=== PATIENT | male | born 1950 | race Caucasian/White ===

== ENCOUNTER 2017-07-03 21:53 | Inpatient (IN) | payer MEDICARE ==
[~2017-07-03] VITALS: Ht 160 cm; Wt 64.9 kg
--- NOTE | 2017-07-03 22:18 | ED.ADGEN ---
Past History Past Medical History: Anxiety, Arthritis, Bronchitis, CAD, CHF, COPD, Depression, Schizophrenia Past Surgical History: Gastric Bypass Adult General Chief Complaint Chief Complaint "Ah...Ah....Ah....Ah...." HPI HPI Patient is a 18 year old male who presents with hx of schizophrenia and mental status change. Pt. well know to PD [place] for hx. Schizophrenia and occasional exacerbations. Pt. normally follows at [facility]. Pt reported very agitated, destroying property tonight , hallucinating and confused. Pt. appears to have been non-compliant with intake of Citalopram 30 and Quetiapine 400 daily. Pt. PD referral for his behavior and mental status change. Pt. behavior is most agitated that the police have ever seen with him. Police dept. is very familiar with this patient and his psychotic schizophrenic exacerbations. Patient has a long history of noncompliance, polysubstance abuse, Bipolar, CARDz s/p CABG , HTN, COPD, Chronic Pain, DJD, Erectile Dysfunction, Hyperlipidemia, Hepatitis, and PTSD. Pt. usually drug of choice is Cocaine and ETOH. Pt. has hx. of multiple psychiatric admits. Pt. hx. college degree. Previously followed with Dr. Love. Pt. could not be reasoned with by Police or Paramedics. Pt. reportedly very agitated, violent and confused. Patient would not follow any request by the Police Department or paramedics. Pt. fighting with paramedics and police. Pt. eventually required Versed 5 mg nasal and 5 mg IV. Minimal effect on his severe agitation and required restraints. Patient on arrival very agitated and confused. Was moving all extremities. Attempts to bite staff and pull out IV 's and tariq. Review of Systems Review of Systems Unable to obtain because of patient's confusion/ mental status Family History Family History Not currently available Current Medications Current Medications Current Medications Medications (Trade) Dose Ordered Sig/Javi Start Time Stop Time Status Last Admin Dose Admin Ceftriaxone Sodium 2 gm/ Sodium Chloride 100 ml @ 200 mls/hr 1X ONCE 07/03/17 23:45 07/04/17 00:14 UNV Ceftriaxone Sodium (Rocephin) 2 gm 1X ONCE 07/03/17 23:59 07/04/17 00:00 DC 07/04/17 00:36 2 GM Diphenhydramine HCl (Benadryl) 50 mg 1X ONCE 07/03/17 22:30 07/03/17 22:31 DC 07/03/17 22:39 50 MG Midazolam HCl (Versed) 5 mg 1X ONCE 07/03/17 23:45 07/03/17 23:46 DC 07/04/17 00:07 5 MG Olanzapine (ZyPREXA IM) 10 mg 1X ONCE 07/03/17 23:45 07/03/17 23:46 DC 07/04/17 00:05 10 MG Ondansetron HCl (Zofran) 4 mg PRN Q4HRS PRN 07/04/17 02:00 07/05/17 01:59 Sodium Bicarbonate 50 meq 1X ONCE 07/03/17 23:00 07/03/17 23:43 DC 07/03/17 23:49 50 MEQ Sodium Chloride 1,000 ml @ 1,000 mls/hr 1X ONCE 07/03/17 23:45 07/04/17 00:44 DC 07/03/17 23:45 1,000 MLS/HR See Nursing for home meds Allergies Allergies Allergies Coded Allergies Type Severity Reaction Last Updated Verified No Known Drug Allergies 07/03/17 No Physical Exam Physical Exam Constitutional: in acute distress, appearance of someone under influence of drugs [] HENT: Normocephalic, atraumatic, bilateral external ears normal, oropharynx dry , no oral exudates, nose normal. Edentulous Eyes: PERRLA, EOMI, conjunctiva normal, no discharge. [] Neck: Normal range of motion, no tenderness, supple, no stridor. [] Cardiovascular: Tachycardia Heart rate regular rhythm, no murmur, PMI to the left Lungs & Thorax: Bilateral breath sounds equal apex with scattered wheezes throughout on auscultation []Midline scar Abdomen: Bowel sounds normal, soft, no tenderness, no masses, no pulsatile masses. [] Skin: Warm, dry, no erythema, no rash. Poor turgor Back: No tenderness, no CVA tenderness. [] Extremities: No tenderness, no cyanosis, no clubbing, ROM intact, no edema. Arthritic changes Neurologic: , moving all extremities, volitional response to noxious stimuli, no gross focal deficits noted. [] Psychologic: Affect very agitated. Current Patient Data Lab Results Laboratory Tests Test 07/03/17 22:00 07/03/17 22:10 07/03/17 22:36 07/04/17 01:11 White Blood Count 12.7 x10^3/uL (4.0-11.0) H Red Blood Count 4.39 x10^6/uL (4.30-5.70) Hemoglobin 13.7 g/dL (13.0-17.5) Hematocrit 40.1 % (39.0-53.0) Mean Corpuscular Volume 91 fL (79-100) Mean Corpuscular Hemoglobin 31 pg (25-35) Mean Corpuscular Hemoglobin Concent 34 g/dL (31-37) Red Cell Distribution Width 13.4 % (11.5-14.5) Platelet Count 266 x10^3/uL (140-400) Neutrophils (%) (Auto) 74 % (31-73) H Lymphocytes (%) (Auto) 15 % (24-48) L Monocytes (%) (Auto) 10 % (0-9) H Eosinophils (%) (Auto) 0 % (0-3) Basophils (%) (Auto) 1 % (0-3) Neutrophils # (Auto) 9.3 x10^3uL (1.8-7.7) H Lymphocytes # (Auto) 1.9 x10^3/uL (1.0-4.8) Monocytes # (Auto) 1.2 x10^3/uL (0.0-1.1) H Eosinophils # (Auto) 0.0 x10^3/uL (0.0-0.7) Basophils # (Auto) 0.1 x10^3/uL (0.0-0.2) Prothrombin Time 10.5 SEC (9.4-11.4) Prothrombin Time INR 1.0 (0.9-1.1) PTT 23 SEC (23-33) Sodium Level 139 mmol/L (136-145) Potassium Level 4.5 mmol/L (3.5-5.1) Chloride Level 100 mmol/L (98-107) Carbon Dioxide Level 23 mmol/L (21-32) Anion Gap 16 (6-14) H Blood Urea Nitrogen 63 mg/dL (8-26) H Creatinine 1.8 mg/dL (0.7-1.3) H Estimated GFR (Cockcroft-Gault) 37.9 Glucose Level 73 mg/dL (70-99) Lactic Acid Level 2.3 mmol/L (0.4-2.0) H Calcium Level 9.7 mg/dL (8.5-10.1) Magnesium Level 2.1 mg/dL (1.8-2.4) Ammonia 12 mcmol/L (11-34) Creatine Kinase 2600 U/L (39-308) H Creatine Kinase MB (Mass) 34.7 ng/mL (0.0-3.6) H Creatine Kinase MB Relative Index 1.3 % (0-4) Troponin I Quantitative 0.038 ng/mL (0-0.055) XA-Srs-[id number]-Type Natriuretic Peptide 925 pg/mL (0-124) H Ethyl Alcohol Level < 10 mg/dL (0-10) Urine Collection Type U cath Urine Color Yellow Urine Clarity Hazy Urine pH 5.0 Urine Specific Achille >=1.030 Urine Protein Trace (NEG-TRACE) Urine Glucose (UA) Neg mg/dL (NEG) Urine Ketones (Stick) Trace mg/dL (NEG) Urine Blood Mod (NEG) Urine Nitrite Neg (NEG) Urine Bilirubin Neg (NEG) Urine Urobilinogen Dipstick 1 mg/dL (0.2 mg/dL) Urine Leukocyte Esterase Neg (NEG) Urine RBC 6-10 /HPF (0-2) Urine WBC 1-4 /HPF (0-4) Urine Squamous Epithelial Cells Occ /LPF Urine Amorphous Sediment Present /HPF Urine Bacteria 0 /HPF (0-FEW) Urine Hyaline Casts Mod /HPF Urine Granular Casts Mod /HPF Urine Mucus Mod /LPF Urine Opiates Screen Neg (NEG) Urine Methadone Screen Neg (NEG) Urine Barbiturates Neg (NEG) Urine Phencyclidine Screen Neg (NEG) Urine Amphetamine/Methamphetamine Pos (NEG) Urine Benzodiazepines Screen Pos (NEG) Urine Cocaine Screen Neg (NEG) Urine Cannabinoids Screen Neg (NEG) Urine Ethyl Alcohol Neg (NEG) Blood pH 7.38 (7.35-7.46) Blood Gas PCO2 38 mmHg (35-46) Blood Gas PO2 106 mmHg (80-100) H Blood Gas HCO3 23 mmol/L (21-28) Arterial Bld O2 Saturation (Calc) 98 % (92-99) FiO2 28 % Glucose (Fingerstick) 83 mg/dL (70-99) EKG EKG My interpretation of EKG shows a sinus rhythm at 80 bpm there is some bimodal P- wave is in left leads. There is a anterior lateral abnormalities. Occasional PVC [] Radiology/Procedures Radiology/Procedures My interpretation of chest x-ray shows cardiomegaly. COPD pattern. Some cephalization. Previous surgery clips and wires. CT head shows some atrophy But no findings acute bleed, shift, mass, edema, or fracture. See formal report when available Course & Med Decision Making Course & Med Decision Making Pertinent Labs and Imaging studies reviewed. (See chart for details) Discussed presentation, testing and tx. plan with Dr. Luna- plan admit for hydration and further eval. Social Service consult for eventual placement may be needed. [] Final Impression Final Impression 1. Mental Status 2. Schizophrenia 3. Methamphetamine / Polysubstance Abuse 4. Leukocytosis 5. Dehydration 6. Elevated CK 7. Elevated Lactic Acid[] 8. Hx PTSD 9. Hx. Non-compliance Problems: Dragon Disclaimer Dragon Disclaimer This electronic medical record was generated, in whole or in part, using a voice recognition dictation system. BELIA TURPIN MD Jul 03, 2017 22:18
[2017-07-03] MEDS ORDERED: diphenhydrAMINE 50 MG/ML VIAL IV ONE (22:30)
[2017-07-03 22:39] LABS: BASO # 0.1 x10^3/uL (0.0-0.2); BASO % 1 % (0-3); EOS % 0 % (0-3); HEMATOCRIT 40.1 % (39.0-53.0); HEMOGLOBIN 13.7 g/dL (13.0-17.5); LYMPH # 1.9 x10^3/uL (1.0-4.8); LYMPH % 15 % (24-48); MEAN CORPUSCULAR HEMOGLOBIN 31 pg (25-35); MEAN CORPUSCULAR HGB CONC 34 g/dL (31-37); MEAN CORPUSCULAR VOLUME 91 fL (79-100); MONO # 1.2 x10^3/uL (0.0-1.1); MONO % 10 % (0-9); NEUT # 9.3 x10^3uL (1.8-7.7); NEUT % 74 % (31-73); PLATELET COUNT 266 x10^3/uL (140-400); RED BLOOD COUNT 4.39 x10^6/uL (4.30-5.70); RED CELL DISTRIBUTION WIDTH 13.4 % (11.5-14.5); WHITE BLOOD COUNT 12.7 x10^3/uL (4.0-11.0)
[2017-07-03] MEDS ORDERED: OLANZapine IM 10 MG VIAL. IM ONE ×2 (22:45→23:45)
[2017-07-03 22:51] LABS: AMPHETAMINE/METHAMPHETAMINE POS (NEG); BARBITURATES NEG (NEG); BENZODIAZEPINES POS (NEG); CANNABINOIDS NEG (NEG); COCAINE NEG (NEG); METHADONE NEG (NEG); OPIATES NEG (NEG); PHENCYCLIDINE NEG (NEG)
[2017-07-03 22:57] LABS: BILIRUBIN,URINE NEG (NEG); CLARITY,URINE HAZY; COLOR,URINE YELLOW; GLUCOSE,URINE NEG (NEG)
[2017-07-03 22:58] LABS: AMORPHOUS SEDIMENT,UR PRESENT /HPF; BACTERIA,URINE 0 /HPF (0-FEW); GRANULAR CASTS,URINE MOD /HPF; HYALINE CASTS, URINE MOD /HPF; NITRITE,URINE NEG (NEG); SQUAMOUS EPITHELIAL CELL,UR OCC /LPF; UROBILINOGEN,URINE 1 mg/dL (0.2 mg/dL)
[2017-07-03 23:00] LABS: CALCIUM 9.7 mg/dL (8.5-10.1); CREATININE 1.8 mg/dL (0.7-1.3); GFR 37.9; MAGNESIUM 2.1 mg/dL (1.8-2.4); POTASSIUM 4.5 mmol/L (3.5-5.1)
[2017-07-03] MEDS ORDERED: SODIUM BICARB ADULT 8.4% 50 MEQ/50 ML DISP.SYRIN. IV ONE (23:00)
[2017-07-03] MEDS ORDERED: QUET400T4 PO (23:01)
[2017-07-03] MEDS ORDERED: CITA20TA9 PO (23:01)
[2017-07-03 23:03] LABS: BGAS PH 7.38 (7.35-7.46)
[2017-07-03] MEDS ORDERED: IV NORMAL SALINE 1,000ML 1,000 ML IV ONE (23:45)
[2017-07-03] MEDS ORDERED: MIDAZOLAM HCL PF 5 MG/5 ML VIAL. IV ONE (23:45)
[2017-07-03] MEDS ORDERED: cefTRIAXone IV Push 2 GM VIAL. IVP ONE (23:59)
[2017-07-04] VITALS (7 sets, daily range): BP systolic 96–117; BP diastolic 43–65
[2017-07-04] MEDS ORDERED: ONDANSETRON PF 4 MG/2 ML VIAL. IV PRN (02:00)
--- NOTE | 2017-07-04 02:25 | RAD ---
INDICATION: 205046.001 Altered mental status, combative, unable to communicate, difficulty holding still. Old images sent from 05/27/16 for comparison. COMPARISON: May 27, 2016 TECHNIQUE: Axial CT images obtained through the head without intravenous contrast. One or more of the following individualized dose reduction techniques were utilized for this examination: 1. Automated exposure control; 2. Adjustment of the mA and/or kV according to patient size; 3. Use of iterative reconstruction technique. FINDINGS: No intracranial hemorrhage. No midline shift. Basal cisterns patents. Ventricles and sulci are globally prominent. No acute osseous abnormality. Orbits and paranasal sinuses unremarkable. Scattered foci of low attenuation within the white matter. IMPRESSION: 1. No acute intracranial hemorrhage. 2. Scattered regions of low attenuation within the white matter. Non-specific in nature but frequently secondary to chronic small vessel ischemic disease. 3. Prominence of ventricles and sulci which is frequently secondary to age related volume loss. 4. The mandibular condyle is located anterior to the temporomandibular joint bilaterally. This could be physiologic in nature from the way that were holding their jaw during the exam but would ensure that there is no symptoms of subluxation. Electronically signed by: Juan Villalpando MD (07/04/2017 2:21 AM) [facility]
[2017-07-04 02:30] LABS: BGAS PH 7.42 (7.35-7.46)
[2017-07-04] MEDS ORDERED: diphenhydrAMINE 50 MG/ML VIAL IM PRN (04:00)
[2017-07-04] MEDS: LORazepam 2 MG/ML VIAL IV PRN ×2 (04:33→11:31)
[2017-07-04 04:35] LABS: INFLUENZA A PATIENT NEGATIVE (NEGATIVE); INFLUENZA B PATIENT NEGATIVE (NEGATIVE)
[2017-07-04] MEDS ORDERED: SODIUM BICARB ADULT 8.4% 50 MEQ/50 ML DISP.SYRIN. ONE (04:41)
[2017-07-04] MEDS: SODIUM BICARBONATE IVF IV SCH ×2 (05:01→07:45)
[2017-07-04] MEDS: DEXTROSE IV SCH ×2 (05:01→07:45)
[2017-07-04] MEDS: NACL IV SCH ×2 (05:01→07:45)
[2017-07-04] MEDS ORDERED: MIDAZOLAM HCL PF 5 MG/5 ML VIAL. IV ONE (08:00)
--- NOTE | 2017-07-04 08:20 | RAD ---
EXAM: Chest 2 views. HISTORY: Hypoxia, shortness of breath. COMPARISON: None. FINDINGS: Frontal and lateral views of the chest are obtained. There are changes of coronary artery bypass grafting. There are no confluent infiltrates. There is tilt on the lateral projection. There is no pneumothorax or clear pleural effusion. The heart is not enlarged. There are atherosclerotic calcifications of the aorta. IMPRESSION: 1. No confluent infiltrates.
--- NOTE | 2017-07-04 08:42 | EKG ---
[address] [address] Test Date: 2017-07-03 Test Time: 21:57:55 Pat Name: HAYDE SUNG Department: Room: [facility] 1 Gender: M [employer] Operator: : [id number] Requested By: BELIA TURPIN Order Number: [id number] Reading MD: Yayo Trejo Measurements Intervals Union Rate: 80 P: 59 VA: 132 QRS: 44 QRSD: 104 T: 104 QT: 400 QTc: 465 Interpretive Statements SINUS RHYTHM VENTRICULAR PREMATURE COMPLEX(ES) LEFT ATRIAL ABNORMALITY QRS(T) CONTOUR ABNORMALITY CONSIDER ANTEROLATERAL INFARCT CONSISTENT WITH INFERIOR INFARCT PROBABLY OLD ABNORMAL ECG RI6.01 No previous ECG available for comparison Electronically Signed On 07-09-2017 9:18:15 [employer]SACTIONAL [employer] by Yayo Trejo
[2017-07-04] MEDS ORDERED: QUET400T4 PO (08:55)
[2017-07-04] MEDS ORDERED: OLANZapine IM 10 MG VIAL. IM PRN (09:00)
[2017-07-04] MEDS ORDERED: MVI, ADULT NO.4 WITH VIT K 10 ML, FOLIC ACID 1 MG, THIAMINE 100 MG in IV DEXTROSE 5%-LA... IV SCH ×4 (09:00)
[2017-07-04] MEDS ORDERED: OLANZapine IM 10 MG VIAL. IM SCH (09:00)
[2017-07-04] MEDS ORDERED: IV DEXTROSE 5 %-0.45 % NACL 1,000 ML IV SCH (09:00)
[2017-07-04 09:10] LABS: HEMATOCRIT 38.9 % (39.0-53.0); HEMOGLOBIN 13.5 g/dL (13.0-17.5); RED BLOOD COUNT 4.25 x10^6/uL (4.30-5.70); RED CELL DISTRIBUTION WIDTH 13.4 % (11.5-14.5); WHITE BLOOD COUNT 10.4 x10^3/uL (4.0-11.0)
[2017-07-04 09:24] LABS: ALBUMIN 3.8 g/dL (3.4-5.0); ALBUMIN/GLOBULIN RATIO 1.2 (1.0-1.7); CALCIUM 8.8 mg/dL (8.5-10.1); CREATININE 1.2 mg/dL (0.7-1.3); GFR 60.6; MAGNESIUM 2.2 mg/dL (1.8-2.4); POTASSIUM 3.7 mmol/L (3.5-5.1); TOTAL BILIRUBIN 0.7 mg/dL (0.2-1.0)
--- NOTE | 2017-07-04 15:15 | HP ---
ADMIT DATE: 07/04/2017 HISTORY OF PRESENT ILLNESS: The patient is a 67-year-old male patient with a history of schizophrenia and mental status change. He is well known to the police department of [place] for history of schizophrenia and occasional exacerbation. He normally follows at the [facility]. He apparently was noted to be very agitated, destroying property, last night hallucinating, confused, appears to have been noncompliant with intake of his citalopram and quetiapine fumarate. He was referred to the Emergency Room by the police department for his behavior and mental status change. Apparently, yesterday, he was most agitated that the police ever seen him with. Apparently, the police department is very familiar with this patient and his psychotic schizophrenic exacerbation. He has a long history of noncompliance and polysubstance abuse, bipolar and basically and neither the police nor the paramedics could reason with him, as he was reportedly very agitated, violent and confused, and was not falling request by the police department or psychiatric arnp. He was fighting with paramedics and police. The patient eventually required Versed 5 mg nasally and 5 mg IV with minimal effect and his severe agitation required restraints. By the time he arrived to the Emergency Room, he was very agitated, confused, was moving all extremities, attempted to bite staff and without IV and his Maxwell catheter and he was evaluated in the Emergency Room, was found to be dehydrated, had rhabdomyolysis and lactic acidosis and was admitted for rehydration. PAST MEDICAL HISTORY: Significant for coronary artery disease, hypertension, COPD, chronic pain syndrome, DJD, erectile dysfunction, hyperlipidemia, chronic hepatitis A and B posttraumatic stress disorder. He is also known to have polysubstance abuse. PAST SURGICAL HISTORY: Significant for coronary artery bypass graft surgery. His past surgical history is significant also for gastric bypass surgery. ALLERGIES: HE IS ALLERGIC TO SIMVASTATIN. MEDICATIONS: He is normally on following medications: He is on citalopram hydrobromide 30 mg once a day, quetiapine fumarate 200 mg daily and 400 mg at bedtime. FAMILY HISTORY: Noncontributory. SOCIAL HISTORY: Apparently he lives in [place] in an apartment. No further details on his social history except that he has polysubstance abuse and his drug of choice is normally cocaine and alcohol and apparently was admitted multiple times, inpatient psychiatric intervention. PHYSICAL EXAMINATION: GENERAL: On arrival to the Emergency Room. Apparently, the patient was extremely agitated, violent, pale, but no jaundiced, cyanosis, or thyromegaly. No jugular venous distension. No limb edema. VITAL SIGNS: Her heart rate was 84, blood pressure was 117/61, temperature was 97.8, respiratory rate 24, and oxygen saturation was 96%. HEAD, EYES, NOSE AND THROAT: Showed normocephalic, atraumatic. NECK: Supple. HEART: Showed normal first and second heart sounds with no gallop, rub or murmur. CHEST: Clear to auscultation. No crepitation or rhonchi. ABDOMEN: Distended, soft, nontender. NEUROLOGIC: He was agitated, moves all extremities without difficulty, was extremely unkempt. LABORATORY DATA: In the Emergency Room showed that his white cell count was 3700, hemoglobin 13, hematocrit 40, MCV 91, and platelet count of 266,000 with normal manual differential. His blood gases showed a pH of 7.38, pCO2 of 38, pO2 of 106, bicarbonate 23, and oxygen saturation was 98% and FiO2 28%. His prothrombin time was 10.5, INR of 1, aPTT was 23. His serum sodium was 139, potassium 4.5, chloride 100, bicarbonate 23, anion gap of 16, BUN of 63, creatinine 1.8, estimated GFR was 38 mL per minute. His glucose was 73. Lactic acid was 2.3, calcium was 9.7, magnesium was 2.1. His CK was 2600. Troponin was less than 0.038 and ammonia was only 12. ASSESSMENT AND PLAN: The patient was admitted to the ICU, was started on IV fluid and also up in a banana bag and was continued on olanzapine, lorazepam as well as diphenhydramine final day of discharge. IMPRESSION: In summary, this is a 67-year-old male patient who was admitted with mental status change, schizophrenia exacerbation, methamphetamine, polysubstance abuse, leukocytosis, dehydration, elevated CK, lactic acidosis, posttraumatic stress disorder. TANNER BILLS MD DR: ALIYA/desiree JOB#: [id number] / [id number]
== END 2017-07-04 18:46 | disposition left against medical advice (07) | DRG 557 ==
LOC: ER 21:53 → EDBD 21:53 → ICU 07-04 02:00
PROVIDERS: ADMIT Internal Medicine; ATTEND Internal Medicine
DX: M62.82 Rhabdomyolysis (principal); N17.0 Acute kidney failure with tubular necrosis; E87.2 Acidosis; I50.9 Heart failure, unspecified; I11.0 Hypertensive heart disease with heart failure; J44.9 Chronic obstructive pulmonary disease, unspecified; E86.0 Dehydration; Z53.21 Procedure and treatment not carried out due to patient leaving prior to being seen by health care provider; D72.829 Elevated white blood cell count, unspecified; E78.5 Hyperlipidemia, unspecified; F20.9 Schizophrenia, unspecified; F43.10 Post-traumatic stress disorder, unspecified; F15.10 Other stimulant abuse, uncomplicated; G89.4 Chronic pain syndrome; I25.10 Atherosclerotic heart disease of native coronary artery without angina pectoris; K73.9 Chronic hepatitis, unspecified; F14.10 Cocaine abuse, uncomplicated; F32.9 Major depressive disorder, single episode, unspecified; F19.10 Other psychoactive substance abuse, uncomplicated; F41.9 Anxiety disorder, unspecified; M19.90 Unspecified osteoarthritis, unspecified site; N52.9 Male erectile dysfunction, unspecified; Z78.1 Physical restraint status; Z91.19 Patient's noncompliance with other medical treatment and regimen; Z95.1 Presence of aortocoronary bypass graft; Z98.84 Bariatric surgery status; Z88.8 Allergy status to other drugs, medicaments and biological substances
CPT/HCPCS: 36415; 36600; 51702; 70450; 71046; 80048; 80053; 80307; 81001; 82140; 82553; 82803; 82947; 83605; 83735; 83874; 83880; 84484; 85025; 85027; 85610; 85730; 87040; 87641; 87804; 93005; 96361; 96372; 96374; 96375; G0480; J0696; J1200; J2060; J2250; J3490; 99285-25; G0479; J7030